=== PATIENT | female | born 1960 ===

== ENCOUNTER 2024-03-28 07:50 | Outpatient (CLI) | payer OTHER | END 2024-03-28 07:56 | disposition home or self-care (01) | LOC: SONOGRAMA 07:50 → EDBD 07:50 → SONOGRAMA 07:56 | PROVIDERS: ATTEND Obstetrics & Gynecology | DX: N91.1 Secondary amenorrhea (principal); R11.2 Nausea with vomiting, unspecified ==

== ENCOUNTER 2024-03-31 07:57 | Outpatient (CLI) | payer OTHER | END 2024-03-31 08:25 | disposition home or self-care (01) | LOC: EDBD 07:57 → SONOGRAMA 07:57 | PROVIDERS: ATTEND Obstetrics & Gynecology | DX: R10.2 Pelvic and perineal pain (principal) ==

== ENCOUNTER 2024-07-03 10:32 | Outpatient (CLI) | payer OTHER | END 2024-07-03 10:38 | disposition home or self-care (01) | LOC: SONOGRAMA 10:32 | PROVIDERS: ATTEND Obstetrics & Gynecology | DX: N93.9 Abnormal uterine and vaginal bleeding, unspecified (principal) ==